=== PATIENT | female | born 1995 | race Caucasian/White ===

== ENCOUNTER 2016-10-09 17:13 | Emergency (ER) | payer MEDICARE, MEDICAID ==
[~2016-10-09] VITALS: Ht 170.2 cm; Wt 119.8 kg
[~2016-10-09 17:13] MED LIST: ASPIRIN 81MG TA81 MG PO; FLUOXETINE20 MG PO; LEVOTHYROXINE0.05 M2 PO; METOPROLOL 25 M25 MG PO
[2016-10-09] MEDS ORDERED: SEROQUEL50 MG PO (17:22)
[2016-10-09] MEDS ORDERED: REGLAN 5MG TABLE5 MG PO (17:23)
[2016-10-09 17:39] LABS: LYMPH # 2.3 K/mm3 (0.7-4.5)
[2016-10-09 17:46] LABS: URINE BILIRUBIN - DIPSTICK NEGATIVE (NEG); URINE BLOOD NEGATIVE (NEG)
[2016-10-09 17:54] LABS: URINE SQUAMOUS CELLS 20-50 #/hpf (0-5)
--- NOTE | 2016-10-09 18:13 | Emergency Room Report ---
History of Present Illness Time Seen by 1800 Presenting Problem in Triage Pt arrived:Ambulance Stretcher Presenting Problem:MOM STATES THAT PT IS HAVING "SEIZURES" STATES SHE BEGINS TO SHAKE ALL OVER AND HAS A VERY BAD HEADACHE WHEN TREMORS STOP Onset of symptoms date/time:10/09/16 or onset unknown for: Treatment Prior to Arrival: [employer] Provided by: Sepsis Risk Assessment: Temp: 98.3 B/P: 100/55 MAP: 70 Pulse: 73 Resp: 22 Recent fever? N Clinical Suspician of Infection? N Mental Status: 1 - Regular (Normal Baseline) Sepsis Risk:Low Sepsis Risk Have you (or family members/close friends) recently traveled outside the [place]? N If Yes, where/when: Have you had exposure to infectious disease within the past month? TB? Other? Specify: Source patient, RN notes reviewed Exam Limitations no limitations Comment Pt and mother concerned she is having seizures for the past week and describes shaking spells that start on the right arm and progress to the left side. She does not appear to be unconscious with these spells and they last about 5 minutes and after they are over she has a ALCANTARA. She has seen Anita Noble in Dr. Iqbal office and scheduled to see a neurologist in [place] for workup but not scheduled until November She is engaged and sexually active and not on BCP Cardiac Chest Pain Chest pain indicative of cardiac No ALLERGIES Coded Allergies: diphenhydramine (From BENADRYL) (Mild, I-HIVES 09/16/16) Home Medications Reported Medications Levothyroxine Sodium 0.05 MG PO DAILY #90 ASPIRIN (Aspirin) 81 MG PO DAILY Metoprolol Tartrate (Metoprolol 25MG) 25 MG PO DAILY Fluoxetine Hcl (Fluoxetine 20MG) 20 MG PO DAILY Quetiapine Fumarate (Seroquel 50MG) 100 MG PO DAILY Metoclopramide Hcl (Reglan) 5 MG PO AC History Medical History General CAD? No Angina: No [place]: No Hypertension? No Hyperlipidemia? No CHF? No DVT? No PE? No COPD? No Asthma? No Anemia? No GERD? No Gastric ulcers? No GI Bleed? No Hernia? No Thyroid Problems? Yes Hypothyroidism? Yes CVA? No Seizures? No Diabetes? Yes Insulin Dependent: No Insulin Pump: No Home FSBS? Yes Renal Insuffiency? No End Stage Renal Disease? No UTI? No Stones? No BPH? No GB Disease: No Nephritic Syndrome? No Asplenia? No Hepatitis? No Sickle Cell Disease? No Arthritis? No Migraines? No Cataracts? No Glaucoma? No MRSA? No HIV? No TB? No Anxiety? Yes Depression? Yes Cancer? No More? No Immunization Hx Ped.Immunizations UTD Yes DT/Tetanus Unknown Surgical Hx Previous Surgery?N BLADDER CLEANER Hx LMP 1-6 Days Ago Social History Smoking Hx Smoker: Never Smoker Tobacco: No Are you/the child exposed to second-hand smoke: No Alcohol Alcohol: No Review of Systems All Other Systems Reviewed and Negative Constitutional see HPI Psychiatric/Neurological see HPI Physical Exam Vital Signs Vital Signs Date Time Temp Pulse Resp B/P Pulse O2 O2 Flow FiO2 Ox Delivery Rate 10/09 1925 98.6 60 20 98/50 96 10/09 1819 98.8 73 22 91/54 98 10/09 1717 98.3 73 22 100/55 97 General Appearance no apparent distress Respiratory Status No: respiratory distress. Cardiovascular normal exam, regular rate/rhythm Neurologic Choreoathetotic movement but no definite seizure activity witnessed by me, Her movements seem to be involuntary and may be the result of senior living use of Reglan Medical Decision Making LABS/Meds/Orders Pt receiving controlled substance in ED? No Results/Orders Laboratory Tests 10/09/16 1740: Urine Color YELLOW, Urine Appearance SL CLOUDY, Urine pH 6.0, Ur Specific [place] <= 1.005, Urine Protein NEGATIVE, Urine Ketones NEGATIVE, Urine Blood NEGATIVE, Urine Nitrate NEGATIVE, Urine Bilirubin NEGATIVE, Urine Urobilinogen 1.0, Ur Leukocyte Esterase TRACE H, Urine WBC 3-5, Ur Squamous Epith Cells 20- 50, Urine Bacteria 3+, Urine Glucose NEGATIVE 10/09/16 1720: Creatine Kinase 54 10/09/16 1720: Sodium 143, Potassium 4.0, Chloride 106, Carbon Dioxide 28, BUN 8, Creatinine 0.9, Estimated Creat Clear 185, Estimated GFR (MDRD) 78, Glucose 90, Calcium 8.8 , Total Bilirubin 0.2, AST 27, ALT 46, Alkaline Phosphatase 162 H, Total Protein 7.0, Albumin 3.2 L, Globulin 3.8 H, Albumin/Globulin Ratio 0.8 L, WBC 9.5, RBC 4.32, Hgb 12.0 L, Hct 36.0 L, MCV 83.4, RDW 16.7, Plt Count 294, MPV 9, Gran % 71.2, Gran # 6.8, Lymphocytes % 24.0, Monocytes % 4.8, Lymphocytes # 2.3, Monocytes # 0.5, PUBS MCHC 33.3, MCH 27.8 Current Medication Orders Sig/Rishi Start time Last Medication Dose Route Stop Time Status Admin Sodium Chloride 10 ML PRN PRN 10/09 173 AC IV 10/10 1730 Orders Procedure Date/time Status DIET-NOTHING BY MOUTH 10/[address] HEAD W/O CONTRAST 10/[address] HEAD REQ 10/09 181 Complete URINE 10/09 181 Complete CPK 10/09 181 Complete CULTURE, URINE 10/09 1740 Active URINALYSIS/COMPLETE 10/09 173 Complete IV SALINE LOCK 10/09 173 Active CBC WITH AUTO DIFF 10/09 173 Complete CHEM 12 PROFILE 10/09 173 Complete Departure Departure Time of Disposition 1957 Disposition DC Home or Self Care(routine) Clinical Impression Primary Impression: Tardive dyskinesia Condition STABLE Referrals Zoe Chavez (Family): 1 Day-Call Office Patient Instructions DI for Tardive Dyskinesia, Tardive Dyskinesia, Tardive Dyskinesia (Alternative Therapy) Additional Instructions Stop taking Reglan now and follow up with Neurology as soon as possible Discharge Counseling Counseled pt/family regarding diagnosis, test results, medications/RX, home care, follow up needs ED Critical Care Critical Care No If Critical Care minutes are documented, the time involved in the performance of seperately reportable procedures was not counted toward critical care time documented. I directly delivered medical care to this critically ill and/or injured patient. Timely evaluation and treatment was necessary to address the significant organ system(s) dysfunction present in this patient. at 2000
--- NOTE | 2016-10-09 20:10 | RADIOLOGY REPORT PS360 ---
CT HEAD W/O CONTRAST INDICATION: Seizure activity Routine axial images for brain followed by additional post-processing axial bone window images. Axial CT scanning from the base of the skull through the vertex to evaluate the brain was performed. Subsequent post processing 2-D CT bone windows were submitted to PACS and are useful to evaluate calvarium, visualize portions of paranasal sinuses, mastoids and base of skull. Multiaxial scans are obtained from the base of the skull to the vertex and performed without contrast. The base of the skull appeared normal. The ventricular system was normal. There was no ischemic infarct or bleed and there were no extra-axial fluid collections. The bony calvarium appeared intact. IMPRESSION: Negative noncontrast CT scan of the brain.
[2016-10-09 20:12] VITALS: BP 147/67
== END 2016-10-09 20:13 | disposition home or self-care (01) ==
LOC: ER 17:13
PROVIDERS: General Practice
DX: G24.01 Drug induced subacute dyskinesia (principal); T45.0X5A Adverse effect of antiallergic and antiemetic drugs, initial encounter; F41.8 Other specified anxiety disorders; E11.9 Type 2 diabetes mellitus without complications

== ENCOUNTER → 2016-11-09 | Outpatient (CLI) | payer MEDICARE, MEDICAID ==
[~2016-11-09] MED LIST changes: +REGLAN 5MG TABLE5 MG PO; +SEROQUEL50 MG PO
--- NOTE | 2016-11-09 14:51 | RADIOLOGY REPORT PS360 ---
PROCEDURE: 2-D M-mode and color Doppler study INDICATIONS FOR THE TEST: Chest pain COPD Heart Murmur+ Tobacco Smoking Palpitations Fatigue Syncope Edema+ Hypertension Diabetes Mellitus Rheumatic Fever SOB+LEE Obesity+Hyperlipidemia Family History HD Additional History Pre-op clearance for DNC PATIENT INFORMATION HEIGHT: 67 WEIGHT: 264 GENDER: Female B/P: 129/89 2-D/M-MODE INTERPRETATION: 2-D MEASUREMENTS OBSERVED VALUES IN CMS Right Ventricular Dimension (RVDd) 2.7 Interventricular Septum (Thickness)(IVsd) 0.9 Left Ventricular Internal Dimensions(LVIDd) 4.9 Left Ventricular Posterior Wall (Thickness)(LVPWd) 1.0 Aortic Root 2.3 Aortic Cusp Separation 2.1 Left Atrial Dimensions (LAD) 3.8 2D 1. Left atrium is normal size, left ventricle is normal size, there is no concentric left ventricular hypertrophy, visually estimated ejection fraction of 55% with no obvious regional wall motion abnormality. 2. The right atrium and right ventricle are normal size and contractility. 3. The aortic, mitral, tricuspid and pulmonic valve is structurally normal. 4. No significant pericardial effusion noted. DOPPLER INTERROGATION: Doppler interrogation of the aortic mitral and tricuspid valvular presence of trace mitral and tricuspid regurgitation of no hemodynamic significance, tricuspid regurgitant jet velocity insufficient for acquisition of the right ventricular systolic pressure, diastolic parameters are within normal range. CONCLUSION: 1. Normal left ventricular size, preserved left ventricular systolic function, visually estimated ejection fraction of 55% with no obvious regional wall motion abnormality, diastolic parameters are within normal range. 2. Trace mitral and tricuspid regurgitation. 3. No significant pericardial effusion noted.
== END ==
LOC: RT 11-01 08:00
DX: R06.02 Shortness of breath (principal)

== ENCOUNTER → 2017-05-10 | Outpatient (CLI) | payer MEDICARE, MEDICAID ==
[2017-05-10 15:16] LABS: HEMOGLOBIN 11.3 g/dL (12.2-16.2); LYMPH # 1.7 K/mm3 (0.7-4.5); LYMPH % 21.6 % (10-50.0)
[2017-05-10 16:31] LABS: BUN 10 mg/dL (7-18); FREE THYROXIN INDEX 7.2 ug/dl (5.93-13.13)
[2017-05-10 16:45] LABS: GFR (ESTIMATED) 90 ML/MIN (59-)
--- NOTE | 2017-05-10 18:01 | RADIOLOGY REPORT PS360 ---
US PELVIS-TRANSVAGINAL ONLY HISTORY: IRREGULAR BLEEDING dysfunctional uterine bleeding Patient Age: 21 years: Female Ordering Physician: Alejandro Chan MD TECHNIQUE: Transvaginal pelvic ultrasound COMPARISON : FINDINGS Uterus appears normal in size 8 seem in length as 3.5 cm AP x 5.2 cm transverse. Prominent Endometrial stripe measuring 1 cm AP. No fibroids. No lesions. Left ovary measures 1.8 x 1.75 cm x 1 cm. Contains a 9.3mm x 7.1 mm cyst. Few small follicles left ovary also noted.. Right ovary measures 2.2 x 1.4 x 2.8 cm 1 cm cyst is seen at or adjacent to the right ovary. No fluid in cul-de-sac IMPRESSION: -------- . Uterus normal in size with generous endometrial stripe measuring up to 1 cm AP. Ovaries normal in size with up to 1 cm likely cyst at left ovary & at/ or adjacent right ovary.
[2017-05-12 06:42] LABS: FSH 10.4 mIU/mL (.); LH 6.8 mIU/mL (.)
== END ==
LOC: RAD 05-03 13:30 → LAB 14:11 → RAD 14:30
PROVIDERS: Nurse Practitioner Obstetrics & Gynecology
DX: E03.9 Hypothyroidism, unspecified (principal); N92.6 Irregular menstruation, unspecified